=== PATIENT | male | born 1960 | race Caucasian/White ===

== ENCOUNTER → 2017-01-21 | Outpatient (CLI) | payer OTHER | LOC: M LAB 06:55 | PROVIDERS: ATTEND Physician Assistant | DX: R97.20 Elevated prostate specific antigen [PSA] (principal) ==

== ENCOUNTER → 2017-01-27 | Outpatient (CLI) | payer OTHER ==
[2017-01-27 19:17] LABS: ANION GAP 6 MEQ/L (8-16); BLOOD UREA NITROGEN 17 MG/DL (7-18); CALCIUM LEVEL 9.4 MG/DL (8.5-10.1); CARBON DIOXIDE LEVEL 28 MEQ/L (21-32); CHLORIDE LEVEL 106 MEQ/L (98-107); GLOMERULAR FILTRATION RATE > 60.0 (>56); GLUCOSE, FASTING 94 MG/DL (70-105); POTASSIUM SERUM 4.7 MEQ/L (3.5-5.1); SODIUM LEVEL 140 MEQ/L (136-145)
== END ==
LOC: M SMT 14:52
PROVIDERS: ATTEND Nurse Practitioner Women's Health
DX: R97.20 Elevated prostate specific antigen [PSA] (principal)

== ENCOUNTER → 2017-04-18 | Outpatient (CLI) | payer OTHER ==
[2017-04-18 17:42] LABS: ANION GAP 7 MEQ/L (8-16); BLOOD UREA NITROGEN 19 MG/DL (7-18); CALCIUM LEVEL 8.6 MG/DL (8.5-10.1); CARBON DIOXIDE LEVEL 26 MEQ/L (21-32); CHLORIDE LEVEL 109 MEQ/L (98-107); CREATININE FOR GFR 1.18 MG/DL (0.70-1.30); GLOMERULAR FILTRATION RATE > 60.0 (>56); GLUCOSE, FASTING 129 MG/DL (70-105); SODIUM LEVEL 142 MEQ/L (136-145)
== END ==
LOC: M LAB 16:53
PROVIDERS: ATTEND Family Medicine
DX: R97.20 Elevated prostate specific antigen [PSA] (principal)

== ENCOUNTER → 2017-04-29 | Outpatient (CLI) | payer OTHER ==
[~2017-04-29] MED LIST: BACT800T5 PO; CEFD1CAP8 PO; CIPR500T3 PO; CIPR5SUS PO; OMEP40CA2 PO; PRAV40TA2 PO; TYLE325C PO
--- NOTE | 2017-04-29 13:44 | REP ---
Prostate sonography: History: Elevated PSA. Sonographic findings: Trans rectal prostate sonography demonstrates unremarkable seminal vesicles. Prostate gland is heterogeneously enlarged with calcifications and cystic changes noted. Glandular dimensions are measured at 5.8 by 4.9 by 5.6 cm with a calculated glandular volume of 82.1 ml. Transrectal sonographic guidance provided to Dr. Haywood who performed trans rectal ultrasound guided needle biopsy procedure . Signed by Chad Conde MD 04/29/2017 01:35 P
== END ==
LOC: M SMT PRO 09:00
PROVIDERS: ATTEND Urology
DX: R97.20 Elevated prostate specific antigen [PSA] (principal)
CPT/HCPCS: 76872; 76942; G0416

== ENCOUNTER 2017-04-30 16:45 | Observation (INO) | payer OTHER ==
[~2017-04-30] VITALS: Ht 175.3 cm; Wt 112.7 kg
[2017-04-30] MEDS ORDERED: PRAV40TA2 PO (16:52)
[2017-04-30] MEDS ORDERED: CIPR5SUS PO (16:52)
[2017-04-30] MEDS ORDERED: OMEP40CA2 PO (16:52)
[2017-04-30] MEDS ORDERED: NS 1,000 ML IV ONE (17:15)
[2017-04-30] MEDS ORDERED: ONDANSETRON 4MG/2ML VIAL (J2405) IV ONE (17:15)
[2017-04-30] MEDS: IBUPROFEN 600 MG TAB PO ONE ×2 (17:15→17:22)
[2017-04-30 17:34] LABS: BASO # 0.1 K/mm3 (0.0-0.2); BASO % 0.4 % (0.0-1.0); EOS # 0.1 K/mm3 (0.0-0.50); EOS % 0.6 % (0.0-3.0); LARGE UNSTAINED CELL # 0.1 K/mm3 (0.0-0.4); LARGE UNSTAINED CELL % 0.6 % (0.0-4.0); LYMPH # 0.6 K/mm3 (1.5-4.5); LYMPH % 4.6 % (24.0-44.0); MEAN CORPUSCULAR HEMOGLOBIN 29.1 pg (27.0-33.0); MEAN CORPUSCULAR HGB CONC 34.4 g/dl (32.0-36.5); MEAN CORPUSCULAR VOLUME 84.5 fl (80.0-96.0); MONO # 0.4 K/mm3 (0.0-0.8); MONO % 2.8 % (0.0-5.0); NEUTROPHILS # 12.5 K/mm3 (1.8-7.7); PLATELET COUNT, AUTOMATED 331 k/mm3 (150-450); RED CELL DISTRIBUTION WIDTH 13.4 % (11.5-14.5); WHITE BLOOD COUNT 13.8 K/mm3 (4.0-10.0)
[2017-04-30 17:55] LABS: ALBUMIN 3.8 GM/DL (3.2-5.2); ALBUMIN/GLOBULIN RATIO 1.03 (1.00-1.93); ALKALINE PHOSPHATASE 88 U/L (45-117); ALT/SGPT 25 U/L (12-78); ANION GAP 10 MEQ/L (8-16); AST/SGOT 24 U/L (15-37); BILIRUBIN,DIRECT 0.1 MG/DL (0.0-0.2); BILIRUBIN,TOTAL 0.5 MG/DL (0.2-1.0); BLOOD UREA NITROGEN 15 MG/DL (7-18); CALCIUM LEVEL 8.5 MG/DL (8.5-10.1); CARBON DIOXIDE LEVEL 23 MEQ/L (21-32); CHLORIDE LEVEL 106 MEQ/L (98-107); CREATININE FOR GFR 1.12 MG/DL (0.70-1.30); GLOMERULAR FILTRATION RATE > 60.0 (>56); GLUCOSE, FASTING 131 MG/DL (70-105); POTASSIUM SERUM 3.5 MEQ/L (3.5-5.1); SODIUM LEVEL 139 MEQ/L (136-145); TOTAL PROTEIN 7.5 GM/DL (6.4-8.2)
[2017-04-30] MEDS ORDERED: GENTAMICIN 500 MG in D5W 100 ML IV ONE (18:30)
[2017-04-30] MEDS ORDERED: GENTAMICIN IV ONE (18:30)
[2017-04-30] MEDS ORDERED: D5W IV ONE (18:30)
[2017-04-30] MEDS ORDERED: ACETAMINOPHEN 325 MG TAB PO ONE (19:30)
[2017-04-30] MEDS ORDERED: CIPR500T3 PO (20:11)
[2017-04-30] MEDS ORDERED: ACETAMINOPHEN 500 MG TAB PO PRN (20:45)
[2017-04-30] MEDS ORDERED: PRAVASTATIN 20 MG TAB PO SCH (21:00)
[2017-04-30] MEDS ORDERED: AMPICILLIN SOD 1 GM in D5W MINI-BAG PLUS 50 ML IV SCH (21:00)
[2017-04-30 22:00] VITALS: BP 120/78
[2017-04-30] MEDS: D5W/0.45% SODIUM CHLORIDE 1,000 ML IV SCH (22:39)
[2017-04-30] MEDS: AMPICILLIN SOD 1 GM in D5W MINI-BAG PLUS 50 ML IV SCH (22:54)
[2017-05-01] VITALS: BP 118/65
[2017-05-01] MEDS: AMPICILLIN SOD 1 GM in D5W MINI-BAG PLUS 50 ML IV SCH ×2 (04:49→09:18)
[2017-05-01 06:28] LABS: MEAN CORPUSCULAR HEMOGLOBIN 28.5 pg (27.0-33.0); MEAN CORPUSCULAR HGB CONC 33.6 g/dl (32.0-36.5); MEAN CORPUSCULAR VOLUME 84.8 fl (80.0-96.0); RED CELL DISTRIBUTION WIDTH 13.6 % (11.5-14.5); WHITE BLOOD COUNT 6.6 K/mm3 (4.0-10.0)
[2017-05-01 06:51] LABS: ANION GAP 6 MEQ/L (8-16); BLOOD UREA NITROGEN 12 MG/DL (7-18); CARBON DIOXIDE LEVEL 28 MEQ/L (21-32); CHLORIDE LEVEL 106 MEQ/L (98-107); CREATININE FOR GFR 1.26 MG/DL (0.70-1.30); GLOMERULAR FILTRATION RATE > 60.0 (>56); GLUCOSE, FASTING 124 MG/DL (70-105); POTASSIUM SERUM 3.8 MEQ/L (3.5-5.1); SODIUM LEVEL 140 MEQ/L (136-145)
[2017-05-01] MEDS: D5W/0.45% SODIUM CHLORIDE 1,000 ML IV SCH (07:44)
[2017-05-01 08:00] VITALS: BP 142/79
[2017-05-01] MEDS ORDERED: OMEPRAZOLE 20 MG CAP PO SCH (09:00)
[2017-05-01] MEDS ORDERED: CEFD1CAP8 PO (14:59)
[2017-05-01] MEDS ORDERED: TYLE325C PO (14:59)
[2017-05-01] MEDS ORDERED: BACT800T5 PO (14:59)
--- NOTE | 2017-05-01 15:04 | HPEPDOC ---
General Date of Admission Apr 30, 2017 at 19:[address] Haywood, Urologist Attending Physician: SARAH MEDINA MD Chief Complaint The patient is a 57-year-old male admitted with Fevers after recent prostate biopsy. Source: Patient Exam Limitations: No limitations Timing/Duration: 24 hours Severity: Moderate Associated Symptoms: Fever, Chills, Nausea, Vomiting History of Present Illness Mr. Cortez had a prostate biopsy [address] Haywood. He reports that he felt nausea and vomiting later that night after the biopsy. He reports that over the following 24 hours he felt increasingly ill with subjective fevers, chills, and worsening nausea and vomiting. He went to the [facility] ER where blood and urine cultures were collected and labs showed leukocytosis. He was treated with IV Gentamicin in the ER and was noted to have temp about 101 F. A decision was made to admit him for observation. Home Medications Scheduled Ciprofloxacin HCl (Ciprofloxacin HCl) 500 Mg Tab, 500 MG PO DAILY, (Reported) For 3 days - End 04/30/2017 Omeprazole (Omeprazole) 40 Mg Cap, 40 MG PO DAILY, (Reported) Pravastatin Sod (Pravastatin Sodium) 40 Mg Tab, 20 MG PO QHS, (Reported) Allergies Coded Allergies: No Known Drug Allergy (Unverified Allergy, Unknown, 01/30/13) Past Medical History Medical History Jansen's esophagus, elevated PSA Surgical History T&A as child Family History Significant Family History: Noncontributory Review of Symptoms Constitutional: Reports: Chills, Fever, Weakness Eyes: Denies: Redness ENT: Denies: Sore Throat Skin: Denies: Jaundice, Bruising, Itching Pulmonary: Denies: Pleuritic Chest Pain Cardiovascular: Denies: Chest Pain, Palpitations, Orthopnea, Paroxysmal Noc. Dyspnea, Lt Headedness Gastrointestinal: Denies: Nausea, Vomiting, Abdominal Pain, Diarrhea Genitourinary: Denies: Dysuria, Frequency, Incontinence, Retention Hematologic: Denies: Bruising, Bleeding Excessively Musculoskeletal: Denies: Neck Pain, Back Pain, Joint Pain, Muscle Pain, Spasms Neurological: Denies: Weakness, Numbness, Change in speech, Confusion Psych: Reports: Mood Normal, Denies: Depression, Memory Issues Physical Examination General Exam: Positive: Alert, No Acute Distress Eye Exam: Positive: PERRLA, Conjunctiva & lids normal, EOMI, Negative: Sclera icteric ENT Exam: Positive: Atraumatic, Mucous membr. moist/pink, Pharynx Normal Neck Exam: Positive: Supple, Negative: JVD, thyromegaly Chest Exam: Positive: Clear to auscultation, Normal air movement Heart Exam: Positive: Rate Normal, Regular Rhythm, Normal S1, Normal S2, Negative: Murmurs, Rubs Telemetry: Positive: No significant arrhythmia Abdomen Exam: Positive: Normal bowel sounds, Soft, Negative: Tenderness, Hepatospenomegaly Extremity Exam: Positive: Normal pulses, Negative: Clubbing, Cyanosis, Edema Skin Exam: Positive: Nl turgor and temperature, Negative: Breakdown, Lesion Neuro Exam: Positive: Normal Gait, Normal Speech, Cranial Nerves 3-12 NL, Reflexes 2+ Psych Exam: Positive: Mental status NL, Mood NL, Oriented x 3 Vital Signs Vital Signs Date Time Temp Pulse Resp B/P (MAP) Pulse Ox O2 Delivery O2 Flow Rate FiO2 05/01/17 12:00 99.9 05/01/17 08:00 75 18 142/79 (100) 94 Room Air Laboratory Data Labs 24H Laboratory Tests 2 04/30/17 17:08: Urine Appearance CLEAR, Urine Color YELLOW, Urine pH 6.0, Urine Specific [place] 1.026, Urine Protein 1+H, Urine Glucose (UA) NEGATIVE, Urine Ketones NEGATIVE, Urine Urobilinogen 0.2, Urine Bilirubin NEGATIVE, Urine Leukocyte Esterase NEGATIVE, Urine Blood 1+H, Urine Nitrite NEGATIVE, Urine WBC (Auto) 3, Urine RBC (Auto) 36H, Urine Hyaline Casts (Auto) 0, Urine Bacteria (Auto) NEGATIVE, Urine Squamous Epithelial Cells 0, Urine Mucus (Auto) SMALL, Urine Sperm (Auto) 04/30/17 17:23: White Blood Count 13.8H, Red Blood Count 5.27, Hemoglobin 15.3, Hematocrit 44.5 , Mean Corpuscular Volume 84.5, Mean Corpuscular Hemoglobin 29.1, Mean Corpuscular Hemoglobin Concent 34.4, Red Cell Distribution Width 13.4, Platelet Count 331, Neutrophils (%) (Auto) 91.0H, Lymphocytes (%) (Auto) 4.6L, Monocytes (%) (Auto) 2.8, Eosinophils (%) (Auto) 0.6, Basophils (%) (Auto) 0.4, Neutrophils # (Auto) 12.5H, Lymphocytes # (Auto) 0.6L, Monocytes # (Auto) 0.4, Eosinophils # (Auto) 0.1, Basophils # (Auto) 0.1, Large Unclassified Cells % 0.6 , Large Unclassified Cells # 0.1, Anion Gap 10, Glomerular Filtration Rate > 60.0, Lactic Acid Level 1.5, Calcium Level 8.5, Aspartate Amino Transf (AST/SGOT ) 24, Alanine Aminotransferase (ALT/SGPT) 25, Alkaline Phosphatase 88, Total Bilirubin 0.5, Direct Bilirubin 0.1, Total Protein 7.5, Albumin 3.8, Albumin/ Globulin Ratio 1.03 05/01/17 06:09: Anion Gap 6L, Glomerular Filtration Rate > 60.0, Calcium Level 8.0L, Blood Urea Nitrogen 12, Creatinine 1.26, Sodium Level 140, Potassium Level 3.8, Chloride Level 106, Carbon Dioxide Level 28 CBC/BMP Laboratory Tests 04/30/17 17:23 Red Blood Count 5.27, Mean Corpuscular Volume 84.5, Mean Corpuscular Hemoglobin 29.1, Mean Corpuscular Hemoglobin Concent 34.4, Red Cell Distribution Width 13.4 , Neutrophils (%) (Auto) 91.0 H, Lymphocytes (%) (Auto) 4.6 L, Monocytes (%) ( Auto) 2.8, Eosinophils (%) (Auto) 0.6, Basophils (%) (Auto) 0.4, Neutrophils # ( Auto) 12.5 H, Lymphocytes # (Auto) 0.6 L, Monocytes # (Auto) 0.4, Eosinophils # (Auto) 0.1, Basophils # (Auto) 0.1 05/01/17 06:09 Red Blood Count 4.57, Mean Corpuscular Volume 84.8, Mean Corpuscular Hemoglobin 28.5, Mean Corpuscular Hemoglobin Concent 33.6, Red Cell Distribution Width 13.6 , Calcium Level 8.0 L Microbiology Microbiology 04/30/17 Blood Culture, Received Pending 04/30/17 Blood Culture, Received Pending 04/30/17 Urine Culture - Final, Complete Assessment/Plan Fevers, chills, N/V after prostate biopsy Plan / VTE VTE Prophylaxis Ordered?: Yes VTE Exclusion Pharmacological: At Low Risk for VTE Plan Plan Admit for observation 1. Ampicillin and gentamicin. 2. Repeat labs in AM. 3. IVF 4. Regular diet. Disposition will consider d/c home after 24 hours ABx depending on condition SARAH MEDINA MD May 01, 2017 15:04
[2017-05-01] MEDS ORDERED: GENTAMICIN 120 MG in D5W 50 ML IV SCH (18:00)
== END 2017-05-01 16:20 | disposition home or self-care (01) ==
LOC: M ED 16:45 → M ED INP 19:40 → M PED 22:00
PROVIDERS: ADMIT Urology Pediatric Urology; ATTEND Urology Pediatric Urology
DX: R50.9 Fever, unspecified (principal); R11.2 Nausea with vomiting, unspecified; Z98.890 Other specified postprocedural states; R97.20 Elevated prostate specific antigen [PSA]; D72.829 Elevated white blood cell count, unspecified; K22.70 Barrett's esophagus without dysplasia; Z79.899 Other long term (current) drug therapy; Z79.2 Long term (current) use of antibiotics
CPT/HCPCS: 36415; 80048; 80076; 81001; 83605; 85025; 85027; 87040; 87086; 96361; 96365; 96375; 96376; 99284; J1580; J2405

== ENCOUNTER → 2017-05-25 | Outpatient (REF) | payer OTHER | LOC: M SMT 16:00 | PROVIDERS: ATTEND Urology | DX: R97.20 Elevated prostate specific antigen [PSA] (principal) ==

== ENCOUNTER → 2017-08-25 | Outpatient (CLI) | payer OTHER | LOC: M LAB 06:29 | PROVIDERS: ATTEND Urology | DX: R97.20 Elevated prostate specific antigen [PSA] (principal) ==

== ENCOUNTER → 2017-08-25 | Outpatient (CLI) | payer OTHER ==
[2017-08-25 07:37] LABS: MEAN CORPUSCULAR HEMOGLOBIN 27.8 pg (27.0-33.0); MEAN CORPUSCULAR HGB CONC 33.3 g/dl (32.0-36.5); MEAN CORPUSCULAR VOLUME 83.5 fl (80.0-96.0); PLATELET COUNT, AUTOMATED 370 10^3/uL (150-450); RED CELL DISTRIBUTION WIDTH 13.8 % (11.5-14.5); WHITE BLOOD COUNT 9.7 10^3/uL (4.0-10.0)
[2017-08-25 08:12] LABS: ALBUMIN 3.8 GM/DL (3.2-5.2); ALBUMIN/GLOBULIN RATIO 1.23 (1.00-1.93); ALKALINE PHOSPHATASE 92 U/L (45-117); ALT/SGPT 31 U/L (12-78); ANION GAP 9 MEQ/L (8-16); AST/SGOT 22 U/L (15-37); BILIRUBIN,TOTAL 0.4 MG/DL (0.2-1.0); BLOOD UREA NITROGEN 23 MG/DL (7-18); CALCIUM LEVEL 8.9 MG/DL (8.5-10.1); CARBON DIOXIDE LEVEL 25 MEQ/L (21-32); CHLORIDE LEVEL 108 MEQ/L (98-107); CHOLESTEROL LEVEL 225 MG/DL (<200); CREATININE FOR GFR 1.14 MG/DL (0.70-1.30); GLOMERULAR FILTRATION RATE > 60.0 (>56); GLUCOSE, FASTING 104 MG/DL (70-105); POTASSIUM SERUM 4.4 MEQ/L (3.5-5.1); SODIUM LEVEL 142 MEQ/L (136-145); TOTAL PROTEIN 6.9 GM/DL (6.4-8.2); TRIGLYCERIDES LEVEL 355 MG/DL (<150)
== END ==
LOC: M LAB 06:28
PROVIDERS: ATTEND Family Medicine
DX: K22.70 Barrett's esophagus without dysplasia (principal); E78.4 Other hyperlipidemia; R73.01 Impaired fasting glucose

== ENCOUNTER → 2018-07-21 | Outpatient (CLI) | payer OTHER ==
[2018-07-21 07:39] LABS: HEMATOCRIT 43.9 % (42.0-52.0); HEMOGLOBIN 14.5 g/dl (13.5-17.5); MEAN CORPUSCULAR HEMOGLOBIN 27.6 pg (27.0-33.0); MEAN CORPUSCULAR VOLUME 83.6 fl (80.0-96.0); PLATELET COUNT, AUTOMATED 370 10^3/uL (150-450); RED BLOOD COUNT 5.25 10^6/uL (4.30-6.10); RED CELL DISTRIBUTION WIDTH 13.9 % (11.5-14.5)
[2018-07-21 08:07] LABS: ESTIMATED AVERAGE GLUCOSE 128 MG/DL (60-110); HEMOGLOBIN A1c 6.1 %
[2018-07-21 08:25] LABS: ALBUMIN 3.9 GM/DL (3.2-5.2); ALBUMIN/GLOBULIN RATIO 1.18 (1.00-1.93); ALKALINE PHOSPHATASE 83 U/L (45-117); ALT/SGPT 28 U/L (12-78); ANION GAP 9 MEQ/L (8-16); AST/SGOT 17 U/L (7-37); BILIRUBIN,TOTAL 0.6 MG/DL (0.2-1.0); BLOOD UREA NITROGEN 24 MG/DL (7-18); CALCIUM LEVEL 8.9 MG/DL (8.5-10.1); CARBON DIOXIDE LEVEL 24 MEQ/L (21-32); CHLORIDE LEVEL 108 MEQ/L (98-107); CHOLESTEROL LEVEL 191 MG/DL (<200); CHOLESTEROL RISK RATIO 5.026 (<5); CREATININE FOR GFR 1.15 MG/DL (0.70-1.30); GLOMERULAR FILTRATION RATE > 60.0 (>56); GLUCOSE, FASTING 114 MG/DL (70-100); HDL CHOLESTEROL 38 MG/DL (>40); LDL CHOLESTEROL 127 MG/DL (<100); NON-HDL-C 153 MG/DL; POTASSIUM SERUM 4.6 MEQ/L (3.5-5.1); SODIUM LEVEL 141 MEQ/L (136-145); TOTAL PROTEIN 7.2 GM/DL (6.4-8.2); TRIGLYCERIDES LEVEL 129 MG/DL (<150)
== END ==
LOC: M LAB 06:30
DX: K22.70 Barrett's esophagus without dysplasia (principal)

== ENCOUNTER → 2018-07-21 | Outpatient (CLI) | payer OTHER ==
[2018-07-21 08:21] LABS: PROSTATIC SPECIFIC AG MONITOR 5.41 NG/ML (< 4.0)
== END ==
LOC: M LAB 06:33
DX: R97.20 Elevated prostate specific antigen [PSA] (principal)

== ENCOUNTER 2019-01-08 12:59 | Day surgery (SDC) | payer OTHER ==
[~2019-01-08] VITALS: Ht 175.3 cm; Wt 115.6 kg
[~2019-01-08 12:59] MED LIST changes: +NEOM1SUS22 OP; +NEOM1SUS22 OS; +PANT20TA2 PO
[2019-01-08] MEDS ORDERED: NS 1,000 ML IV ONE (13:30)
[2019-01-08] MEDS ORDERED: PROPOFOL 200 MG/20 ML VIAL As Ordered ONE (13:45)
[2019-01-08] MEDS ORDERED: LIDOCAINE 2% INJ 100 MG/5 ML SDV (FOR ANES.) As Ordered ONE (13:45)
--- NOTE | 2019-01-08 13:45 | ROOR ---
Patient Name: Gabino Cortez Procedure Date: 01/08/2019 1:34 PM Date of : 1960 Age: 58 Room: [facility] Gender: Male Note Status: Finalized Procedure: Upper GI endoscopy Indications: Heartburn, Follow-up of previous radiofrequency ablation treatment of Jansen's esophagus Providers: Osbaldo LOPEZ MD Referring MD: Erick Murdock MD Requesting Provider: Medicines: Monitored Anesthesia Care Complications: No immediate complications. Procedure: Pre-Anesthesia Assessment: - The heart rate, respiratory rate, oxygen saturations, blood pressure, adequacy of pulmonary ventilation, and response to care were monitored throughout the procedure. The Endoscope was introduced through the mouth, and advanced to the second part of duodenum. The upper GI endoscopy was accomplished without difficulty. The patient tolerated the procedure well. Findings: The esophagus was normal. The stomach was normal. The examined duodenum was normal. Mucosa was biopsied with a cold forceps for histology at the gastroesophageal junction. Impression: - Normal esophagus. - Normal stomach. - Normal examined duodenum. - Mucosa was biopsied at the gastroesophageal junction for evaluation of Jansen's esophagus. Recommendation: - Repeat upper endoscopy in 3 years for surveillance. - Continue present medications. Osbaldo Lopez MD Osbaldo LOPEZ MD 01/08/2019 1:45:12 PM This report has been signed electronically. Number of Addenda: 0 Note Initiated On: 01/08/2019 1:34 PM Estimated Blood Loss: Estimated blood loss: none.
[2019-01-08 14:10] VITALS: BP 174/94
== END 2019-01-08 14:10 | disposition home or self-care (01) ==
LOC: M OPP 12:59
PROVIDERS: ATTEND Internal Medicine Gastroenterology
DX: K22.70 Barrett's esophagus without dysplasia (principal); Z09 Encounter for follow-up examination after completed treatment for conditions other than malignant neoplasm; R12 Heartburn; G47.30 Sleep apnea, unspecified; Z79.899 Other long term (current) drug therapy; Z88.1 Allergy status to other antibiotic agents

== ENCOUNTER → 2019-01-24 | Outpatient (CLI) | payer OTHER ==
[2019-01-24 08:01] LABS: HEMOGLOBIN A1c 6.3 %
[2019-01-24 08:08] LABS: BLOOD UREA NITROGEN 19 MG/DL (7-18); CARBON DIOXIDE LEVEL 26 MEQ/L (21-32); CHLORIDE LEVEL 109 MEQ/L (98-107); CREATININE FOR GFR 1.11 MG/DL (0.70-1.30); GLOMERULAR FILTRATION RATE > 60.0 (>56); GLUCOSE, FASTING 129 MG/DL (70-100); POTASSIUM SERUM 4.6 MEQ/L (3.5-5.1); SODIUM LEVEL 141 MEQ/L (136-145)
== END ==
LOC: M LAB 07:05
PROVIDERS: ATTEND Family Medicine
DX: R73.01 Impaired fasting glucose (principal)

== ENCOUNTER → 2019-01-24 | Outpatient (CLI) | payer OTHER | LOC: M LAB 07:11 | PROVIDERS: ATTEND Nurse Practitioner Women's Health | DX: R97.20 Elevated prostate specific antigen [PSA] (principal) ==

== ENCOUNTER → 2019-08-07 | Outpatient (CLI) | payer OTHER ==
[2019-08-07 07:10] LABS: HEMATOCRIT 44.8 % (42.0-52.0); HEMOGLOBIN 14.9 g/dl (13.5-17.5); MEAN CORPUSCULAR HEMOGLOBIN 28.5 pg (27.0-33.0); MEAN CORPUSCULAR HGB CONC 33.3 g/dl (32.0-36.5); MEAN CORPUSCULAR VOLUME 85.7 fl (80.0-96.0); PLATELET COUNT, AUTOMATED 346 10^3/uL (150-450); RED BLOOD COUNT 5.23 10^6/uL (4.30-6.10); WHITE BLOOD COUNT 9.6 10^3/uL (4.0-10.0)
[2019-08-07 07:30] LABS: HEMOGLOBIN A1c 6.6 %
[2019-08-07 07:43] LABS: ALBUMIN 3.7 GM/DL (3.2-5.2); ALT/SGPT 25 U/L (12-78); BILIRUBIN,TOTAL 0.3 MG/DL (0.2-1.0); BLOOD UREA NITROGEN 18 MG/DL (7-18); CARBON DIOXIDE LEVEL 25 MEQ/L (21-32); CHLORIDE LEVEL 108 MEQ/L (98-107); CHOLESTEROL LEVEL 215 MG/DL (<200); CHOLESTEROL RISK RATIO 5.972 (<5); CREATININE FOR GFR 1.13 MG/DL (0.70-1.30); GLOMERULAR FILTRATION RATE > 60.0 (>56); GLUCOSE, FASTING 109 MG/DL (70-100); HDL CHOLESTEROL 36 MG/DL (>40); LDL CHOLESTEROL 134 MG/DL (<100); NON-HDL-C 179 MG/DL; POTASSIUM SERUM 4.5 MEQ/L (3.5-5.1); SODIUM LEVEL 142 MEQ/L (136-145); TOTAL PROTEIN 7.1 GM/DL (6.4-8.2); TRIGLYCERIDES LEVEL 225 MG/DL (<150)
== END ==
LOC: M LAB 06:06
PROVIDERS: ATTEND Family Medicine
DX: K22.70 Barrett's esophagus without dysplasia (principal)

== ENCOUNTER → 2021-08-13 | Outpatient (CLI) | payer OTHER ==
[~2021-08-13] MED LIST changes: -OMEP40CA2 PO; +OMEP40CA4 PO; -PANT20TA2 PO; +PANT20TA6 PO
[2021-08-13 07:04] LABS: HEMOGLOBIN 14.6 g/dl (13.5-17.5); MEAN CORPUSCULAR HEMOGLOBIN 27.6 pg (27.0-33.0); MEAN CORPUSCULAR HGB CONC 32.4 g/dl (32.0-36.5); MEAN CORPUSCULAR VOLUME 85.1 fl (80.0-96.0); PLATELET COUNT, AUTOMATED 349 10^3/uL (150-450); RED BLOOD COUNT 5.29 10^6/uL (4.30-6.10); WHITE BLOOD COUNT 8.9 10^3/uL (4.0-10.0)
[2021-08-13 07:20] LABS: HEMOGLOBIN A1c 6.5 %
[2021-08-13 07:30] LABS: ALBUMIN 3.5 GM/DL (3.2-5.2); ALT/SGPT 31 U/L (12-78); BILIRUBIN,TOTAL 0.4 MG/DL (0.2-1.0); BLOOD UREA NITROGEN 22 MG/DL (7-18); CALCIUM LEVEL 8.9 MG/DL (8.8-10.2); CARBON DIOXIDE LEVEL 28 MEQ/L (21-32); CHLORIDE LEVEL 106 MEQ/L (98-107); CHOLESTEROL LEVEL 215 MG/DL (<200); CHOLESTEROL RISK RATIO 6.142 (<5); CREATININE FOR GFR 1.21 MG/DL (0.70-1.30); GLOMERULAR FILTRATION RATE > 60.0 (>49); GLUCOSE, FASTING 143 MG/DL (70-100); HDL CHOLESTEROL 35 MG/DL (>40); LDL CHOLESTEROL 138 MG/DL (<100); NON-HDL-C 180 MG/DL; POTASSIUM SERUM 4.6 MEQ/L (3.5-5.1); PROSTATIC SPECIFIC AG MONITOR 7.13 NG/ML (< 4.00); SODIUM LEVEL 139 MEQ/L (136-145); TOTAL PROTEIN 7.1 GM/DL (6.4-8.2); TRIGLYCERIDES LEVEL 208 MG/DL (<150)
== END ==
LOC: M LAB 06:09
PROVIDERS: ATTEND Family Medicine
DX: R97.20 Elevated prostate specific antigen [PSA] (principal)

== ENCOUNTER 2021-10-22 11:29 | Emergency (ER) | payer OTHER ==
[~2021-10-22] VITALS: Ht 175.3 cm; Wt 118.7 kg
[~2021-10-22 11:29] MED LIST changes: -CEFD1CAP8 PO; +CEFD300C41 PO
[2021-10-22 11:30] VITALS: BP 164/95
== END 2021-10-22 12:24 | disposition left against medical advice (07) ==
LOC: M ED 11:29
DX: Z53.21 Procedure and treatment not carried out due to patient leaving prior to being seen by health care provider (principal)

== ENCOUNTER → 2021-12-30 | Outpatient (CLI) | payer OTHER ==
[~2021-12-30] MED LIST changes: +SILD100T PO
== END ==
LOC: M LABSMTC 09:05
PROVIDERS: ATTEND Anesthesiology
DX: Z01.818 Encounter for other preprocedural examination (principal); Z11.52 Encounter for screening for COVID-19

== ENCOUNTER 2022-01-04 10:37 | Day surgery (SDC) | payer OTHER ==
[~2022-01-04] VITALS: Ht 175.3 cm; Wt 115.2 kg
[~2022-01-04 10:37] MED LIST changes: +NS 1,000 ML IV ONE
[2022-01-04] MEDS ORDERED: propofoL 200 MG/20 ML VIAL As Ordered ONE ×2 (11:14→12:30)
[2022-01-04] MEDS ORDERED: LIDOCAINE 2% 100MG/5ML SDV (FOR ANES.) As Ordered ONE (11:14)
[2022-01-04] MEDS ORDERED: fentaNYL 100 MCG/2 ML INJECTION As Ordered ONE (11:15)
[2022-01-04 13:05] VITALS: BP 129/65
== END 2022-01-04 13:10 | disposition home or self-care (01) ==
LOC: M OPP 10:37
PROVIDERS: ATTEND Internal Medicine Gastroenterology
DX: Z86.010 Personal history of colon polyps (principal); K22.70 Barrett's esophagus without dysplasia; Z09 Encounter for follow-up examination after completed treatment for conditions other than malignant neoplasm; R12 Heartburn; E78.5 Hyperlipidemia, unspecified; G47.33 Obstructive sleep apnea (adult) (pediatric); Z88.1 Allergy status to other antibiotic agents; Z79.899 Other long term (current) drug therapy
CPT/HCPCS: 43239; 45378; 88305; J3010

== ENCOUNTER → 2022-05-08 | Outpatient (CLI) | payer OTHER ==
[~2022-05-08] MED LIST changes: -NS 1,000 ML IV ONE
[2022-05-08 09:49] LABS: BLOOD UREA NITROGEN 20 MG/DL (7-18); CALCIUM LEVEL 9.3 MG/DL (8.8-10.2); CARBON DIOXIDE LEVEL 25 MEQ/L (21-32); CHLORIDE LEVEL 110 MEQ/L (98-107); CREATININE FOR GFR 1.13 MG/DL (0.70-1.30); GLOMERULAR FILTRATION RATE > 60.0 (>49); GLUCOSE, FASTING 132 MG/DL (70-100); POTASSIUM SERUM 4.6 MEQ/L (3.5-5.1); PROSTATIC SPECIFIC AG MONITOR 8.39 NG/ML (< 4.00); SODIUM LEVEL 140 MEQ/L (136-145)
[2022-05-08 10:01] LABS: HEMOGLOBIN A1c 6.3 %
== END ==
LOC: M LAB 08:19 → M PLALAB 08:19
PROVIDERS: ATTEND Family Medicine
DX: E11.9 Type 2 diabetes mellitus without complications (principal)

== ENCOUNTER → 2022-06-22 | Outpatient (CLI) | payer OTHER | LOC: M LAB 06:55 | PROVIDERS: ATTEND Physician Assistant | DX: R97.20 Elevated prostate specific antigen [PSA] (principal) ==

== ENCOUNTER → 2022-07-27 | Outpatient (REF) | payer OTHER | LOC: M SMT 12:52 | PROVIDERS: ATTEND Urology | DX: R97.20 Elevated prostate specific antigen [PSA] (principal) ==

== ENCOUNTER → 2022-11-27 | Outpatient (CLI) | payer OTHER | LOC: M LAB 08:08 | PROVIDERS: ATTEND Urology | DX: C61 Malignant neoplasm of prostate (principal) ==

== ENCOUNTER → 2022-11-27 | Outpatient (CLI) | payer OTHER ==
[2022-11-27 08:38] LABS: HEMATOCRIT 44.7 % (42.0-52.0); HEMOGLOBIN 14.3 g/dl (13.5-17.5); MEAN CORPUSCULAR HEMOGLOBIN 27.9 pg (27.0-33.0); MEAN CORPUSCULAR VOLUME 87.1 fl (80.0-96.0); PLATELET COUNT, AUTOMATED 348 10^3/uL (150-450); RED BLOOD COUNT 5.13 10^6/uL (4.30-6.10); WHITE BLOOD COUNT 8.3 10^3/uL (4.0-10.0)
[2022-11-27 08:52] LABS: HEMOGLOBIN A1c 6.3 % (4.0-6.0)
[2022-11-27 09:02] LABS: CREATININE, URINE 197.6 MG/DL; MAU/CREAT RATIO 14.6 MCG/MG (0.0-30.0)
[2022-11-27 09:04] LABS: ALBUMIN 3.6 G/DL (3.2-5.2); ALKALINE PHOSPHATASE 93 U/L (46-116); ALT/SGPT 25 U/L (7.0-40); AST/SGOT 21 U/L (<34); BILIRUBIN,TOTAL 0.3 MG/DL (0.3-1.2); BLOOD UREA NITROGEN 17 MG/DL (9-23); CALCIUM LEVEL 8.4 MG/DL (8.3-10.6); CARBON DIOXIDE LEVEL 27 MMOL/L (20-31); CHLORIDE LEVEL 107 MMOL/L (98-107); CHOLESTEROL LEVEL 198 MG/DL (<200); CHOLESTEROL RISK RATIO 5.85 (<5); CREATININE FOR GFR 1.11 MG/DL (0.70-1.30); GLOMERULAR FILTRATION RATE > 60.0 (>49); GLUCOSE, FASTING 143 MG/DL (74-106); HDL CHOLESTEROL 33.8 MG/DL (>40); LDL CHOLESTEROL 148.2 MG/DL (<100); NON-HDL-C 164 MG/DL; POTASSIUM SERUM 4.7 MMOL/L (3.5-5.1); SODIUM LEVEL 140 MMOL/L (136-145); TOTAL PROTEIN 6.7 G/DL (5.7-8.2); TRIGLYCERIDES LEVEL 80 MG/DL (<150)
== END ==
LOC: M LAB 08:10
PROVIDERS: ATTEND Family Medicine
DX: E11.9 Type 2 diabetes mellitus without complications (principal); E78.5 Hyperlipidemia, unspecified; K22.70 Barrett's esophagus without dysplasia; G47.33 Obstructive sleep apnea (adult) (pediatric)

== ENCOUNTER → 2023-03-04 | Outpatient (CLI) | payer OTHER | LOC: M LAB 06:54 | PROVIDERS: ATTEND Urology | DX: C61 Malignant neoplasm of prostate (principal) ==

== ENCOUNTER → 2023-06-11 | Outpatient (CLI) | payer OTHER | LOC: M LAB 08:05 | PROVIDERS: ATTEND Urology | DX: C61 Malignant neoplasm of prostate (principal) ==

== ENCOUNTER → 2023-06-11 | Outpatient (CLI) | payer OTHER ==
[2023-06-11 08:33] LABS: HEMATOCRIT 44.6 % (42.0-52.0); HEMOGLOBIN 14.5 g/dl (13.5-17.5); MEAN CORPUSCULAR HGB CONC 32.5 g/dl (32.0-36.5); MEAN CORPUSCULAR VOLUME 86.3 fl (80.0-96.0); PLATELET COUNT, AUTOMATED 347 10^3/uL (150-450); RED BLOOD COUNT 5.17 10^6/uL (4.30-6.10); WHITE BLOOD COUNT 8.3 10^3/uL (4.0-10.0)
[2023-06-11 09:06] LABS: ALBUMIN 3.7 G/DL (3.2-5.2); ALKALINE PHOSPHATASE 92 U/L (46-116); ALT/SGPT 22 U/L (7.0-40); AST/SGOT 10 U/L (<34); BILIRUBIN,TOTAL 0.5 MG/DL (0.3-1.2); BLOOD UREA NITROGEN 20 MG/DL (9-23); CALCIUM LEVEL 9.2 MG/DL (8.3-10.6); CARBON DIOXIDE LEVEL 28 MMOL/L (20-31); CHLORIDE LEVEL 107 MMOL/L (98-107); CHOLESTEROL LEVEL 179 MG/DL (<200); CHOLESTEROL RISK RATIO 4.79 (<5); CREATININE FOR GFR 0.98 MG/DL (0.70-1.30); GLOMERULAR FILTRATION RATE > 60.0 (>49); GLUCOSE, FASTING 143 MG/DL (74-106); HDL CHOLESTEROL 37.3 MG/DL (>40); LDL CHOLESTEROL 119.5 MG/DL (<100); NON-HDL-C 141.7 MG/DL; POTASSIUM SERUM 4.7 MMOL/L (3.5-5.1); SODIUM LEVEL 143 MMOL/L (136-145); TOTAL PROTEIN 6.7 G/DL (5.7-8.2); TRIGLYCERIDES LEVEL 111 MG/DL (<150)
[2023-06-11 09:50] LABS: HEMOGLOBIN A1c 6.3 % (4.0-6.0)
== END ==
LOC: M LAB 08:02
PROVIDERS: ATTEND Family Medicine
DX: R03.0 Elevated blood-pressure reading, without diagnosis of hypertension (principal); E11.9 Type 2 diabetes mellitus without complications; E78.5 Hyperlipidemia, unspecified; K22.70 Barrett's esophagus without dysplasia

== ENCOUNTER → 2023-09-05 | Outpatient (CLI) | payer OTHER ==
[~2023-09-05] MED LIST changes: -CEFD300C41 PO; +CEFD300C42 PO
== END ==
LOC: M LAB 06:56
PROVIDERS: ATTEND Urology
DX: C61 Malignant neoplasm of prostate (principal)

== ENCOUNTER → 2023-09-27 | Outpatient (REF) | payer OTHER | LOC: M SMT PRO 12:31 | PROVIDERS: ATTEND Urology | DX: C61 Malignant neoplasm of prostate (principal) ==

== ENCOUNTER → 2024-01-05 | Outpatient (CLI) | payer OTHER ==
[~2024-01-05] MED LIST changes: +CEFD1CAP9 PO; -CEFD300C42 PO
== END ==
LOC: M LAB 06:58
PROVIDERS: ATTEND Urology
DX: C61 Malignant neoplasm of prostate (principal)

== ENCOUNTER → 2024-04-07 | Outpatient (CLI) | payer OTHER | LOC: M LAB 08:10 | PROVIDERS: ATTEND Urology | DX: C61 Malignant neoplasm of prostate (principal) ==

== ENCOUNTER → 2024-04-07 | Outpatient (CLI) | payer OTHER ==
[2024-04-07 08:52] LABS: HEMOGLOBIN A1c 7.2 % (4.0-6.0)
[2024-04-07 09:10] LABS: BLOOD UREA NITROGEN 18 MG/DL (9-23); CALCIUM LEVEL 9.5 MG/DL (8.3-10.6); CARBON DIOXIDE LEVEL 29 MMOL/L (20-31); CHLORIDE LEVEL 105 MMOL/L (98-107); CREATININE FOR GFR 1.04 MG/DL (0.70-1.30); GLOMERULAR FILTRATION RATE > 60.0 (>49); GLUCOSE, FASTING 172 MG/DL (74-106); POTASSIUM SERUM 5.4 MMOL/L (3.5-5.1); SODIUM LEVEL 140 MMOL/L (136-145)
== END ==
LOC: M LAB 08:08
PROVIDERS: ATTEND Family Medicine
DX: E11.9 Type 2 diabetes mellitus without complications (principal)

== ENCOUNTER → 2024-06-25 | Outpatient (CLI) | payer OTHER ==
[2024-06-25 14:55] LABS: HEMATOCRIT 44.3 % (42.0-52.0); HEMOGLOBIN 14.5 g/dl (13.5-17.5); MEAN CORPUSCULAR HGB CONC 32.7 g/dl (32.0-36.5); MEAN CORPUSCULAR VOLUME 85.5 fl (80.0-96.0); PLATELET COUNT, AUTOMATED 334 10^3/uL (150-450); RED BLOOD COUNT 5.18 10^6/uL (4.30-6.10); WHITE BLOOD COUNT 10.6 10^3/uL (4.0-10.0)
[2024-06-25 15:06] LABS: HEMOGLOBIN A1c 7.2 % (4.0-6.0)
[2024-06-25 15:16] LABS: CREATININE, URINE 203.7 MG/DL; MAU/CREAT RATIO 15.2 MCG/MG (0.0-30.0)
[2024-06-25 15:18] LABS: ALBUMIN 3.8 G/DL (3.2-5.2); ALKALINE PHOSPHATASE 97 U/L (46-116); ALT/SGPT 21 U/L (7.0-40); AST/SGOT 14 U/L (<34); BILIRUBIN,TOTAL 0.4 MG/DL (0.3-1.2); BLOOD UREA NITROGEN 18 MG/DL (9-23); CALCIUM LEVEL 9.6 MG/DL (8.3-10.6); CARBON DIOXIDE LEVEL 26 MMOL/L (20-31); CHLORIDE LEVEL 108 MMOL/L (98-107); CHOLESTEROL LEVEL 195 MG/DL (<200); CHOLESTEROL RISK RATIO 5.85 (<5); GLOMERULAR FILTRATION RATE > 60.0 (>49); GLUCOSE, FASTING 154 MG/DL (74-106); HDL CHOLESTEROL 33.3 MG/DL (>40); LDL CHOLESTEROL 104.9 MG/DL (<100); NON-HDL-C 161.7 MG/DL; POTASSIUM SERUM 4.1 MMOL/L (3.5-5.1); SODIUM LEVEL 138 MMOL/L (136-145); TRIGLYCERIDES LEVEL 284 MG/DL (<150)
[2024-06-25 15:20] LABS: FREE T4 1.01 NG/DL (0.89-1.76); THYROID STIMULATING HORMONE 1.543 uIU/ML (0.55-4.78)
== END ==
LOC: M LAB 14:10
PROVIDERS: ATTEND Family Medicine
DX: R25.2 Cramp and spasm (principal); I10 Essential (primary) hypertension; E11.9 Type 2 diabetes mellitus without complications

== ENCOUNTER → 2024-12-13 | Outpatient (CLI) | payer BC ==
[2024-12-13 16:00] LABS: BLOOD UREA NITROGEN 21 MG/DL (9-23); CALCIUM LEVEL 9.5 MG/DL (8.3-10.6); CARBON DIOXIDE LEVEL 29 MMOL/L (20-31); CHLORIDE LEVEL 103 MMOL/L (98-107); CREATININE FOR GFR 0.96 MG/DL (0.70-1.30); GLOMERULAR FILTRATION RATE > 60.0 (>49); GLUCOSE, FASTING 132 MG/DL (74-106); POTASSIUM SERUM 4.7 MMOL/L (3.5-5.1); SODIUM LEVEL 141 MMOL/L (136-145)
[2024-12-13 16:57] LABS: HEMOGLOBIN A1c 7.4 % (4.0-6.0)
== END ==
LOC: M PLALAB 12:03
PROVIDERS: ATTEND Family Medicine
DX: E11.9 Type 2 diabetes mellitus without complications (principal)

== ENCOUNTER → 2024-12-24 | Outpatient (CLI) | payer BC | LOC: M PLALAB 11:16 | PROVIDERS: ATTEND Urology | DX: C61 Malignant neoplasm of prostate (principal) ==

== ENCOUNTER → 2025-05-14 | Outpatient (REF) | payer MEDICARE ==
[~2025-05-14] MED LIST changes: -PRAV40TA2 PO; +PRAV40TA85 PO
== END ==
LOC: M SMT 12:34
PROVIDERS: ATTEND Urology
DX: C61 Malignant neoplasm of prostate (principal)

== ENCOUNTER → 2025-08-26 | Outpatient (CLI) | payer MEDICARE ==
[~2025-08-26] MED LIST changes: +ACET-683 PO; +COQ150CH PO; +IBUP80TA PO; +LISI20TA33 PO; +METF500T13 PO; +SEMA1PEN2 SQ; +THERTAB52 PO
== END ==
LOC: M PLALAB 08:58
PROVIDERS: ATTEND Urology
DX: C61 Malignant neoplasm of prostate (principal)